=== PATIENT | female | born 1995 | race Caucasian/White ===

== ENCOUNTER 2017-06-30 22:53 | Emergency (ER) | payer BC ==
[~2017-06-30] VITALS: Ht 165.1 cm; Wt 65.8 kg
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
[~2017-06-30 22:53] MED LIST: BIRTH CONTROL PILL; CLEOCIN PO; OMNICEF300 MG PO; TRINESSA TABLE1 EACH PO
== END 2017-07-01 01:43 | disposition home or self-care (01) ==
LOC: SED 22:53
DX: S16.1XXA Strain of muscle, fascia and tendon at neck level, initial encounter (principal); F17.200 Nicotine dependence, unspecified, uncomplicated; Z88.0 Allergy status to penicillin; V49.40XA Driver injured in collision with unspecified motor vehicles in traffic accident, initial encounter
CPT/HCPCS: 72040; 99284